=== PATIENT | female | born 1930 | race Caucasian/White ===

== ENCOUNTER 2018-01-09 18:26 | Inpatient (IN) | payer MEDICARE, OTHER ==
--- NOTE | 2018-01-09 19:16 | ER Document Report ---
ED General - General Mode of Arrival: Medic Information source: Patient, Relative TRAVEL OUTSIDE OF THE [place] IN LAST 30 DAYS: No <CHERELLE ALEGRE - Last Filed: 01/09/18 23:34> <ALEKS WARNER - Last Filed: 01/10/18 02:25> - General Chief Complaint: General Weakness Stated Complaint: GENERAL WEAKNESS Time Seen by Provider: 01/09/18 18:31 Notes: Patient is an 87-year-old female with dementia, hypertension, high cholesterol presents to the emergency department with relatives after being found on the floor at home. Daughter states that she normally visits the patient around 1630 everyday. Today granddaughter states she found the patient laying on the floor further stating she believes she could have possibly hit her head on the floor or a cat dish. Granddaughter states the last known well of the patient was yesterday around 1600. She further states the patient appears to behaving at baseline although for the last 2 weeks she has been unwilling to get out of bed and has been defecating herself. She states the patient normally lives alone and is very independent, although they think she needs to be placed in assisted living now. Family states she has been complaining to them of nausea, body aches and the inability to move. Family also complains of diarrhea although they initially thought it was due to a recent start of medications. Family states the patient just started taking medications 1 week ago. (CHERELLE ALEGRE) - Related Data Allergies/Adverse Reactions: No Known Allergies Allergy (Unverified 10/26/11 12:48) Past Medical History - General Information source: Patient - Social History Smoking Status: Former Smoker Chew tobacco use (# tins/day): No Frequency of alcohol use: None Drug Abuse: None Family History: Reviewed & Not Pertinent Patient has suicidal ideation: No Patient has homicidal ideation: No - Past Medical History Cardiac Medical History: Reports: Hx Hypertension Endocrine Medical History: Reports: Hx Hypothyroidism GI Medical History: Reports: Hx Gastroesophageal Reflux Disease Musculoskeletal Medical History: Reports Hx Arthritis Past Surgical History: Reports: Hx Breast Surgery - Breast implants, Hx Cholecystectomy, Hx Hysterectomy - Immunizations Hx Diphtheria, Pertussis, Tetanus Vaccination: No <CHERELLE ALEGRE - Last Filed: 01/09/18 23:34> Review of Systems - Review of Systems Constitutional: See HPI EENT: No symptoms reported Cardiovascular: No symptoms reported Respiratory: No symptoms reported Gastrointestinal: No symptoms reported Genitourinary: No symptoms reported Female Genitourinary: No symptoms reported Musculoskeletal: No symptoms reported Skin: No symptoms reported Hematologic/Lymphatic: No symptoms reported Neurological/Psychological: See HPI -: Yes All other systems reviewed and negative <CODEYBAYRONGAY - Last Filed: 01/09/18 23:34> Physical Exam <CHERELLE ALEGRE - Last Filed: 01/09/18 23:34> <ALEKS WARNER - Last Filed: 01/10/18 02:25> - Vital signs Vitals: Resp 25 H 01/09/18 18:47 - Notes Notes: GENERAL: Alert, Disheveled, cachectic. No acute distress. HEAD: Normocephalic, atraumatic. EYES: Pupils equal, round, and reactive to light. Extraocular movements intact. Ecchymosis the right eyebrow. ENT: Oral mucosa moist, tongue midline. NECK: Full range of motion. Supple. Trachea midline. LUNGS: Clear to auscultation bilaterally, no wheezes, rales, or rhonchi. No respiratory distress. HEART: Regular rate and rhythm. No murmurs, gallops, or rubs. ABDOMEN: Soft, non-tender. Non-distended. Bowel sounds present in all 4 quadrants. EXTREMITIES: Moves all 4 extremities spontaneously. NEUROLOGICAL: Demented at baseline. Normal speech. PSYCH: Normal affect, normal mood. SKIN: Warm, dry, normal turgor. No rashes or lesions noted. (CHERELLE ALEGRE) Course - Laboratory Result Diagrams: 01/09/18 19:18 01/09/18 19:18 <CODEYCHERELLE GAINES - Last Filed: 01/09/18 23:34> - Laboratory Result Diagrams: 01/09/18 19:18 01/09/18 19:18 - Diagnostic Test Radiology reviewed: Reports reviewed <ALEKS WARNER - Last Filed: 01/10/18 02:25> - Re-evaluation Re-evalutation: 01/09 Patient is 87-year-old female who is brought in by her family. She is found on the ground for an unknown period of time. Patient has dementia. Patient had her head but does not remember doing so. No acute findings on CT head or chest x-ray. Patient does have some acute renal insufficiency likely due to dehydration. She is hypokalemic and has an elevated lactate. Urine with no evidence for infection. Given patient's blood work and inability to walk with some acute on chronic confusion, she will be kept for admission and gentle hydration. Family is agreeable to this plan. Discussed with the hospitalist service. Stable at the time of admission. (ALEKS WARNER) - Vital Signs Vital signs: Temp Pulse Resp BP Pulse Ox 18 117/74 97 01/10/18 01:01 01/10/18 01:01 01/10/18 01:01 - Laboratory Laboratory results interpreted by ca: 01/09/18 01/09/18 01/09/18 19:18 19:18 19:18 WBC 13.8 H RDW 14.5 H Seg Neutrophils % 84.3 H Lymphocytes % 9.3 L Absolute Neutrophils 11.6 H VBG pH VBG HCO3 Potassium 3.1 L Chloride 93 L Anion Gap 23 H BUN 49 H Creatinine 1.38 H Est GFR ( Amer) 44 L Est GFR (Non-Af Amer) 36 L Glucose 122 H Lactic Acid 3.1 H Phosphorus Total Bilirubin 2.0 H Direct Bilirubin 0.9 H AST 141 H ALT 85 H Total Protein 8.4 H TSH Urine Protein Urine Glucose (UA) Urine Ketones Urine Bilirubin Urine Urobilinogen 01/09/18 01/09/18 01/09/18 19:18 19:18 19:18 WBC RDW Seg Neutrophils % Lymphocytes % Absolute Neutrophils VBG pH VBG HCO3 Potassium Chloride Anion Gap BUN Creatinine Est GFR ( Amer) Est GFR (Non-Af Amer) Glucose Lactic Acid Phosphorus 4.7 H Total Bilirubin Direct Bilirubin AST ALT Total Protein TSH 4.96 H 4.87 H Urine Protein Urine Glucose (UA) Urine Ketones Urine Bilirubin Urine Urobilinogen 01/09/18 01/09/18 20:55 20:55 WBC RDW Seg Neutrophils % Lymphocytes % Absolute Neutrophils VBG pH 7.44 H VBG HCO3 32.3 H Potassium Chloride Anion Gap BUN Creatinine Est GFR ( Amer) Est GFR (Non-Af Amer) Glucose Lactic Acid Phosphorus Total Bilirubin Direct Bilirubin AST ALT Total Protein TSH Urine Protein 100 H Urine Glucose (UA) 50 H Urine Ketones 20 H Urine Bilirubin SMALL H Urine Urobilinogen 4.0 H Discharge <CHERELLE ALEGRE - Last Filed: 01/09/18 23:34> - Discharge Admitting Provider: [facility] Admitted: Telemetry <ALEKS WARNER - Last Filed: 01/10/18 02:25> - Discharge Clinical Impression: Hypokalemia, Encephalopathy, Dehydration Closed head injury Qualifiers: Encounter type: initial encounter Qualified Code(s): S09.90XA - Unspecified injury of head, initial encounter Acute renal failure Qualifiers: Acute renal failure type: unspecified Qualified Code(s): N17.9 - Acute kidney failure, unspecified Condition: Stable Disposition: ADMITTED INPATIENT Scribe Attestation: 01/10/18 02:25 I personally performed the services described in the documentation, reviewed and edited the documentation which was dictated to the scribe in my presence, and it accurately records my words and actions. (ALEKS WARNER) Scribe Documentation - Scribe Written by Liamibe:: Laurence Grier, 01/09/2018 23:36 acting as scribe for :: Janet <CHERELLE ALEGRE - Last Filed: 01/09/18 23:34>
[2018-01-09] MEDS ORDERED: ONDANSETRON HCL INJ/PF 4 MG/2 ML SDV IV ONE (19:17)
--- NOTE | 2018-01-09 19:25 | RADIOLOGY REPORT (SQ) ---
EXAM DESCRIPTION: CHEST SINGLE VIEW COMPLETED DATE/TIME: 01/09/2018 7:15 pm REASON FOR STUDY: weakness COMPARISON: 08/22/2014 EXAM PARAMETERS: NUMBER OF VIEWS: One view. TECHNIQUE: Single frontal radiographic view of the chest acquired. RADIATION DOSE: NA LIMITATIONS: None. FINDINGS: LUNGS AND PLEURA: No opacities, masses or pneumothorax. No pleural effusion. MEDIASTINUM AND HILAR STRUCTURES: No masses. Contour normal. HEART AND VASCULAR STRUCTURES: Heart normal in size. Normal vasculature. BONES: No acute findings. HARDWARE: None in the chest. OTHER: Breast prostheses. IMPRESSION: NO ACUTE RADIOGRAPHIC FINDING IN THE CHEST. TECHNICAL DOCUMENTATION: JOB ID: [id number] [employer]- All Rights Reserved Reading location - IP/workstation name: [email or web address]
[2018-01-09 19:32] LABS: ABSOLUTE LYMPHOCYTES (AUTO) 1.3 10^3/uL (0.5-4.7); ABSOLUTE MONOCYTES (AUTO) 0.9 10^3/uL (0.1-1.4); ABSOLUTE NEUT (AUTO) 11.6 10^3/uL (1.7-8.2); BASOPHILS % (AUTO) 0.1 % (0-2); HEMATOCRIT 45.2 % (36.0-47.0); HEMOGLOBIN 15.1 g/dL (12.0-15.5); LYMPHOCYTES % (AUTO) 9.3 % (13-45); MEAN CORPUSCULAR HEMOGLOBIN 29.5 pg (27.0-33.4); MEAN CORPUSCULAR HGB CONC 33.4 g/dL (32.0-36.0); MEAN CORPUSCULAR VOLUME 88 fl (80-97); MONOCYTES % (AUTO) 6.3 % (3-13); PLATELET COUNT 255 10^3/uL (150-450); RED BLOOD COUNT 5.11 10^6/uL (3.72-5.28); RED CELL DISTRIBUTION WIDTH 14.5 % (11.5-14.0); SEGMENTED NEUTROPHILS % (AUTO) 84.3 % (42-78); TOTAL CELLS COUNTED % (AUTO) 100 %; WHITE BLOOD COUNT 13.8 10^3/uL (4.0-10.5)
[2018-01-09 19:38] LABS: INTERNATIONAL RATION (INR) 1.14; PROTHROMBIN TIME 15.1 SEC (11.4-15.4)
[2018-01-09 19:53] LABS: ALANINE AMINOTRANSFERASE 85 U/L (9-52); ALKALINE PHOSPHATASE 101 U/L (38-126); ASPARTATE AMINO TRANSFERASE 141 U/L (14-36); BILIRUBIN,DIRECT 0.9 mg/dL (0.0-0.4); BLOOD UREA NITROGEN 49 mg/dL (7-20); CALCIUM 9.1 mg/dL (8.4-10.2); CREATINE KINASE 97 U/L (30-135); GLUCOSE 122 mg/dL (75-110); POTASSIUM 3.1 mmol/L (3.6-5.0); TOTAL PROTEIN 8.4 g/dL (6.3-8.2)
[2018-01-09 19:58] LABS: ANION GAP 23 (5-19); CARBON DIOXIDE 28 mmol/L (22-30); CHLORIDE 93 mmol/L (98-107); SODIUM 143.8 mmol/L (137-145)
--- NOTE | 2018-01-09 20:41 | RADIOLOGY REPORT (SQ) ---
EXAM DESCRIPTION: CT HEAD WITHOUT COMPLETED DATE/TIME: 01/09/2018 8:29 pm REASON FOR STUDY: fall, head injury COMPARISON: None. TECHNIQUE: Axial images acquired through the brain without intravenous contrast. Images reviewed wi th bone, brain and subdural windows. Images stored on PACS. All CT scanners at this facility use dose modulation, iterative reconstruction, and/or weight based d osing when appropriate to reduce radiation dose to as low as reasonably achievable (ALARA). [facility]: Dose Right [facility]: CareDose [facility]: Dose Right [facility]: Teradose 4D [facility]: Smart [employer] RADIATION DOSE: CT Rad equipment meets quality standard of care and radiation dose reduction techniq ues were employed. CTDIvol: 53.2 mGy. DLP: 937 mGy-cm. mGy. LIMITATIONS: None. FINDINGS: VENTRICLES: Normal size and contour. CEREBRUM: No masses. No hemorrhage. No midline shift. No evidence for acute infarction. Normal gra y/white matter differentiation. No areas of low density in the white matter. CEREBELLUM: No masses. No hemorrhage. No alteration of density. No evidence for acute infarction. EXTRAAXIAL SPACES: No fluid collections. No masses. ORBITS AND GLOBE: No intra- or extraconal masses. Normal contour of globe without masses. CALVARIUM: No fracture. PARANASAL SINUSES: No fluid or mucosal thickening. SOFT TISSUES: No mass or hematoma. OTHER: No other significant finding. IMPRESSION: NORMAL BRAIN CT WITHOUT CONTRAST. EVIDENCE OF ACUTE STROKE: NO. COMMENT: Quality ID # [id number]: Final reports with documentation of one or more dose reduction techniques (e.g., Automated exposure control, adjustment of the mA and/or kV according to patient size, use of iterative reconstruction technique) TECHNICAL DOCUMENTATION: JOB ID: [id number] [employer]- All Rights Reserved Reading location - IP/workstation name: [email or web address]
[2018-01-09] MEDS ORDERED: NORMAL SALINE 1000 ML 1,000 ML IV ONE (20:59)
[2018-01-09 21:01] LABS: PHOSPHORUS 4.7 mg/dL (2.5-4.5)
[2018-01-09 21:18] LABS: VENOUS BLOOD BASE EXCESS 6.7 mmol/L; VENOUS BLOOD HCO3 32.3 mmol/L (20-32); VENOUS BLOOD PH 7.44 (7.30-7.42)
[2018-01-09] MEDS: POTASSI CL 20 MEQ/50 ML RIDER 20 MEQ/50 ML RTUPB IV SCH ×2 (21:18→23:52)
[2018-01-09 21:39] LABS: APPEARANCE,URINE CLOUDY; BILIRUBIN,URINE SMALL (NEGATIVE); GLUCOSE, URINE 50 mg/dL (NEGATIVE); KETONES,URINE 20 mg/dL (NEGATIVE); LEUKOCYTE ESTERASE,URINE NEGATIVE (NEGATIVE); NITRITE,URINE NEGATIVE (NEGATIVE); PROTEIN,URINE 100 mg/dL (NEGATIVE); URINE SPECIFIC GRAVITY 1.024
[2018-01-09 21:41] LABS: COLOR,URINE YELLOW
[2018-01-09] MEDS ORDERED: ACETAMINOPHEN 325 MG TABLET PO PRN (22:16)
[2018-01-09] MEDS ORDERED: IPRATROPIUM/ALBUTEROL 0.5-2.5 MG/3 ML AMPUL NEB PRN (22:16)
[2018-01-09] MEDS ORDERED: NORMAL SALINE 1000 ML 1,000 ML IV SCH (22:30)
[2018-01-10 01:46] LABS: CREATINE KINASE MB 1.5 ng/mL (<4.55); TROPONIN I 0.069 ng/mL
[2018-01-10] MEDS: NORMAL SALINE 1000 ML 1,000 ML IV PRN ×3 (03:12→11:50)
--- NOTE | 2018-01-10 05:57 | PDOC H&P ---
History of Present Illness Admission Date/PCP: 01/09/18 21:48 ANNE-MARIE FERRER MD Patient complains of: Generalized weakness and fall History of Present Illness: DUY PLATT is a 87 year old female who lives alone with a history of advanced vascular dementia, hypertension and anorexia who was found by family members disheveled on the floor with confusion. Patient is unable to recall the events, there is evidence fecal, urinary incontinence and scalp contusion without laceration. Patient currently awake and alert oriented 1 denying pain. Family members at bedside admit this is her baseline, she remains independent with the assistance of family members 3 times a day to assist with hygiene, feeding, medications and ADLs. In the emergency room she is found unable to walk, unremarkable imaging, with hypokalemia, leukocytosis and dehydration. She was recently started on unknown appetite stimulant. She receives IV fluids , potassium and referred to the hospitalist for admission. Past Medical History Cardiac Medical History: Reports: Hyperlipidema, Hypertension Denies: Myocardial Infarction Pulmonary Medical History: Denies: Asthma Neurological Medical History: Denies: Seizures Endocrine Medical History: Reports: Hypothyroidism GI Medical History: Reports: Gastroesophageal Reflux Disease Denies: Hepatitis, Hiatal Hernia Musculoskeltal Medical History: Reports: Arthritis Psychiatric Medical History: Reports: Dementia Denies: Depression Hematology: Denies: Anemia, Sickle Cell Disease Past Surgical History Past Surgical History: Reports: Cholecystectomy, Hysterectomy Denies: Amputation, Mastectomy, Pacemaker Social History Information Source: Relative, [facility] Records Lives with: Alone Smoking Status: Former Smoker Frequency of Alcohol Use: None Hx Recreational Drug Use: No Drugs: None Hx Prescription Drug Abuse: No - Advance Directive Resuscitation Status: Full Code Family History Family History: Hypertension. denies: DM Parental Family History Reviewed: Yes Children Family History Reviewed: Yes Sibling(s) Family History Reviewed.: Yes Medication/Allergy Home Medications: Amlodipine Besylate [Norvasc 10 mg Tablet] 10 mg PO DAILY 10/26/11 Celecoxib [Celebrex 200 mg Capsule] 200 mg PO BID 10/26/11 Estrogens,Conjugated [Premarin 0.625 mg Tablet] 0.625 mg PO DAILY 10/26/11 Furosemide [Lasix 40 mg Tablet] 40 mg PO QAM 10/26/11 Levothyroxine Sodium [Tirosint] 88 mcg PO DAILY 10/26/11 Potassium Chloride [Klor-Con 10 Meq Capsule ER] 20 meq PO DAILY 10/26/11 Rabeprazole Sodium [Aciphex] 20 mg PO DAILY 10/26/11 Ciprofloxacin HCl [Cipro 500 mg Tablet] 500 mg PO BID #10 tablet 08/23/14 Furosemide [Lasix 20 mg Tablet] 20 mg PO QAM #30 tablet 08/23/14 Allergies/Adverse Reactions: No Known Allergies Allergy (Unverified 10/26/11 12:48) Review of Systems ROS unobtainable: Due to mental status Physical Exam Vital Signs: Temp Pulse Resp BP Pulse Ox 97.6 F 70 16 130/61 H 96 01/10/18 03:33 01/10/18 03:33 01/10/18 03:33 01/10/18 03:33 01/10/18 03:33 Intake & Output 01/08/18 01/09/18 01/10/18 11:59 11:59 11:59 Intake Total 1100 Balance 1100 Weight 94 kg General appearance: PRESENT: no acute distress, cooperative, disheveled, thin, other - Chronically ill appearing with cachexia and temporal wasting Head exam: PRESENT: normocephalic, other - Contusion with ecchymosis of the right forehead. ABSENT: atraumatic Eye exam: PRESENT: conjunctiva pink, EOMI, PERRLA. ABSENT: scleral icterus Ear exam: PRESENT: normal external ear exam Mouth exam: PRESENT: moist, tongue midline Neck exam: ABSENT: carotid bruit, JVD, lymphadenopathy, thyromegaly Respiratory exam: PRESENT: clear to auscultation fredo. ABSENT: rales, rhonchi, wheezes Cardiovascular exam: PRESENT: RRR. ABSENT: diastolic murmur, rubs, systolic murmur Pulses: PRESENT: normal dorsalis pedis pul Vascular exam: PRESENT: normal capillary refill GI/Abdominal exam: PRESENT: normal bowel sounds, soft. ABSENT: distended, guarding, mass, organolmegaly, rebound, tenderness Rectal exam: PRESENT: deferred Extremities exam: PRESENT: full ROM. ABSENT: calf tenderness, clubbing, pedal edema Neurological exam: PRESENT: alert, awake, oriented to person, CN II-XII grossly intact. ABSENT: motor sensory deficit Psychiatric exam: PRESENT: appropriate affect, normal mood. ABSENT: homicidal ideation, suicidal ideation Skin exam: PRESENT: dry, intact, warm. ABSENT: cyanosis, rash Results Laboratory Results: 01/09/18 23:35 Lactic Acid 1.8 01/10/18 01/10/18 01:10 01:10 Creatine Kinase 86 CK-MB (CK-2) 1.50 Troponin I 0.069 Impressions: Chest X-Ray 01/09/18 18:40 IMPRESSION: NO ACUTE RADIOGRAPHIC FINDING IN THE CHEST. Head CT 01/09/18 19:15 IMPRESSION: NORMAL BRAIN CT WITHOUT CONTRAST. EVIDENCE OF ACUTE STROKE: NO. Assessment & Plan - Diagnosis (1) Acute renal failure Qualifiers: Acute renal failure type: unspecified Qualified Code(s): N17.9 - Acute kidney failure, unspecified Is this a current diagnosis for this admission?: Yes Plan: Likely secondary to dehydration, IV fluid challenge, reevaluate chemistry (2) Closed head injury Qualifiers: Encounter type: initial encounter Qualified Code(s): S09.90XA - Unspecified injury of head, initial encounter Is this a current diagnosis for this admission?: Yes Plan: Unwitnessed fall, no evidence for seizure, monitor neuro status. (3) Dehydration Is this a current diagnosis for this admission?: Yes Plan: Secondary to anorexia and poor p.o. intake. IV fluid challenge (4) Encephalopathy Is this a current diagnosis for this admission?: Yes Plan: Likely at baseline of vascular dementia. (5) Hypokalemia Is this a current diagnosis for this admission?: Yes Plan: Replace potassium, add on magnesium level, reevaluate chemistry - Time Time Spent: 50 to 70 Minutes
[2018-01-10] MEDS: HEPARIN SOD (PORCINE) 5,000 UNIT/ML 1 ML SYRINGE SUBCUT SCH ×3 (06:51→21:01)
--- NOTE | 2018-01-10 07:34 | EKG REPORT ---
SEVERITY:- ABNORMAL ECG - ATRIAL FIBRILLATION VENTRICULAR PREMATURE COMPLEX ABNORMAL T, CONSIDER ISCHEMIA, DIFFUSE LEADS : Confirmed by: Pramod Altamirano MD 10-Jan-2018 07:33:15
[2018-01-10 08:42] LABS: ABSOLUTE LYMPHOCYTES (AUTO) 1.5 10^3/uL (0.5-4.7); ABSOLUTE MONOCYTES (AUTO) 0.7 10^3/uL (0.1-1.4); ABSOLUTE NEUT (AUTO) 8.4 10^3/uL (1.7-8.2); BASOPHILS % (AUTO) 0.1 % (0-2); EOSINOPHILS % (AUTO) 0.3 % (0-6); HEMATOCRIT 35.6 % (36.0-47.0); LYMPHOCYTES % (AUTO) 13.9 % (13-45); MEAN CORPUSCULAR HEMOGLOBIN 29.8 pg (27.0-33.4); MEAN CORPUSCULAR VOLUME 88 fl (80-97); MONOCYTES % (AUTO) 6.6 % (3-13); PLATELET COUNT 158 10^3/uL (150-450); RED BLOOD COUNT 4.06 10^6/uL (3.72-5.28); RED CELL DISTRIBUTION WIDTH 14.6 % (11.5-14.0); SEGMENTED NEUTROPHILS % (AUTO) 79.1 % (42-78); TOTAL CELLS COUNTED % (AUTO) 100 %; WHITE BLOOD COUNT 10.6 10^3/uL (4.0-10.5)
[2018-01-10 08:55] LABS: HEMOGLOBIN 12.1 g/dL (12.0-15.5)
[2018-01-10 09:00] LABS: ANION GAP 13 (5-19); BLOOD UREA NITROGEN 35 mg/dL (7-20); CALCIUM 7.5 mg/dL (8.4-10.2); CARBON DIOXIDE 23 mmol/L (22-30); CHLORIDE 102 mmol/L (98-107); CREATINE KINASE 118 U/L (30-135); GLUCOSE 86 mg/dL (75-110); SODIUM 138.4 mmol/L (137-145)
[2018-01-10 09:10] LABS: CREATINE KINASE MB 1.79 ng/mL (<4.55); POTASSIUM 2.8 mmol/L (3.6-5.0); TROPONIN I 0.07 ng/mL
[2018-01-10] MEDS: DOCUSATE SODIUM 100 MG CAPSULE PO SCH ×2 (09:58→17:20)
[2018-01-10] MEDS: AMLODIPINE BESYLATE 10 MG TABLET PO SCH (09:59)
[2018-01-10] MEDS: POTASSIUM CHLORIDE 20 MEQ/50 ML RTU IV SCH ×4 (10:00→18:32)
[2018-01-10 14:39] LABS: CREATINE KINASE MB 2.06 ng/mL (<4.55); TROPONIN I 0.068 ng/mL
--- NOTE | 2018-01-10 15:00 | PDOC PROGRESS REPORT ---
Subjective Progress Note for:: 01/10/18 Subjective:: This is 87 years old female patient with past medical history of advanced vascular dementia, hypertension, hyperlipidemia, hypothyroidism and gastroesophageal reflux disease brought by family members with chief complaint of altered mental status. At her baseline patient is very independent to her activities of daily living but the last 2 weeks patient refused to get out of bed and doing her other her daily routines. On arrival to the ER patient was disheveled and incoherent. Her blood work shows hypokalemia and acute kidney injury. Her daughter states that there are no more able to take care of her and they want her to be placed in assisted living. Reason For Visit: ENCEPHALOPATHY, FALL, MALNUTRITION Physical Exam Vital Signs: Temp Pulse Resp BP Pulse Ox 97.5 F 77 16 114/61 94 01/10/18 08:13 01/10/18 09:20 01/10/18 09:20 01/10/18 08:13 01/10/18 08:13 Intake & Output 01/09/18 01/10/18 01/11/18 06:59 06:59 06:59 Intake Total 1100 2043 Balance 1100 2043 Weight 94 kg General appearance: PRESENT: no acute distress Eye exam: PRESENT: conjunctiva pink Mouth exam: PRESENT: moist Neck exam: ABSENT: carotid bruit, JVD, lymphadenopathy, thyromegaly Respiratory exam: PRESENT: clear to auscultation fredo. ABSENT: rales, rhonchi, wheezes Cardiovascular exam: PRESENT: RRR. ABSENT: diastolic murmur, rubs, systolic murmur GI/Abdominal exam: PRESENT: normal bowel sounds, soft. ABSENT: distended, guarding, mass, organolmegaly, rebound, tenderness Extremities exam: PRESENT: full ROM. ABSENT: calf tenderness, clubbing, pedal edema Neurological exam: PRESENT: alert, altered, awake Results Laboratory Results: 01/10/18 07:46 01/10/18 07:46 01/09/18 01/10/18 01/10/18 23:35 07:46 07:46 WBC 10.6 H RBC 4.06 Hgb 12.1 D Hct 35.6 L MCV 88 MCH 29.8 MCHC 34.0 RDW 14.6 H Plt Count 158 Seg Neutrophils % 79.1 H Lymphocytes % 13.9 Monocytes % 6.6 Eosinophils % 0.3 Basophils % 0.1 Absolute Neutrophils 8.4 H Absolute Lymphocytes 1.5 Absolute Monocytes 0.7 Absolute Eosinophils 0.0 Absolute Basophils 0.0 Sodium 138.4 Potassium 2.8 L* Chloride 102 Carbon Dioxide 23 Anion Gap 13 BUN 35 H Creatinine 0.79 Est GFR ( Amer) > 60 Est GFR (Non-Af Amer) > 60 Glucose 86 Lactic Acid 1.8 Calcium 7.5 L 01/10/18 01/10/18 01/10/18 01:10 01:10 07:46 Creatine Kinase 86 118 CK-MB (CK-2) 1.50 Troponin I 0.069 01/10/18 01/10/18 07:46 13:38 Creatine Kinase 134 CK-MB (CK-2) 1.79 Troponin I 0.070 Impressions: Chest X-Ray 01/09/18 18:40 IMPRESSION: NO ACUTE RADIOGRAPHIC FINDING IN THE CHEST. Head CT 01/09/18 19:15 IMPRESSION: NORMAL BRAIN CT WITHOUT CONTRAST. EVIDENCE OF ACUTE STROKE: NO. Assessment & Plan - Diagnosis (1) AMS, due to metabolic encephalopathy Is this a current diagnosis for this admission?: Yes Plan: We will correct her hypokalemia and kidney injury (2) Hypokalemia Is this a current diagnosis for this admission?: Yes Plan: Being repleted (3) Acute kidney injury Is this a current diagnosis for this admission?: Yes Plan: Most probably due to dehydration. Gentle hydration (4) Advanced vascular dementia Is this a current diagnosis for this admission?: Yes Plan: Continue her home medication and monitor (5) Hypertension Qualifiers: Hypertension type: essential hypertension Qualified Code(s): I10 - Essential (primary) hypertension Is this a current diagnosis for this admission?: Yes Plan: Continue her home medication (6) Hyperlipidemia Qualifiers: Hyperlipidemia type: unspecified Qualified Code(s): E78.5 - Hyperlipidemia , unspecified Is this a current diagnosis for this admission?: Yes Plan: Continue her home medication (7) GERD (gastroesophageal reflux disease) Qualifiers: Esophagitis presence: without esophagitis Qualified Code(s): K21.9 - Gastro -esophageal reflux disease without esophagitis Is this a current diagnosis for this admission?: Yes Plan: Continue PPI
[2018-01-11] MEDS: HEPARIN SOD (PORCINE) 5,000 UNIT/ML 1 ML SYRINGE SUBCUT SCH ×3 (05:09→21:15)
[2018-01-11 05:32] LABS: ABSOLUTE EOSINOPHILS # (AUTO) 0.1 10^3/uL (0.0-0.6); ABSOLUTE LYMPHOCYTES (AUTO) 1.6 10^3/uL (0.5-4.7); ABSOLUTE MONOCYTES (AUTO) 0.7 10^3/uL (0.1-1.4); ABSOLUTE NEUT (AUTO) 5.4 10^3/uL (1.7-8.2); BASOPHILS % (AUTO) 0.2 % (0-2); EOSINOPHILS % (AUTO) 1.2 % (0-6); HEMATOCRIT 36.6 % (36.0-47.0); HEMOGLOBIN 12.4 g/dL (12.0-15.5); LYMPHOCYTES % (AUTO) 20.2 % (13-45); MEAN CORPUSCULAR HEMOGLOBIN 29.7 pg (27.0-33.4); MEAN CORPUSCULAR HGB CONC 33.9 g/dL (32.0-36.0); MEAN CORPUSCULAR VOLUME 88 fl (80-97); MONOCYTES % (AUTO) 8.6 % (3-13); PLATELET COUNT 130 10^3/uL (150-450); RED BLOOD COUNT 4.18 10^6/uL (3.72-5.28); RED CELL DISTRIBUTION WIDTH 14.6 % (11.5-14.0); SEGMENTED NEUTROPHILS % (AUTO) 69.8 % (42-78); TOTAL CELLS COUNTED % (AUTO) 100 %; WHITE BLOOD COUNT 7.7 10^3/uL (4.0-10.5)
[2018-01-11 05:42] LABS: ANION GAP 11 (5-19); BLOOD UREA NITROGEN 18 mg/dL (7-20); CARBON DIOXIDE 28 mmol/L (22-30); CHLORIDE 98 mmol/L (98-107); GLUCOSE 75 mg/dL (75-110); SODIUM 137.2 mmol/L (137-145)
[2018-01-11 05:48] LABS: POTASSIUM 2.9 mmol/L (3.6-5.0)
[2018-01-11] MEDS: AMLODIPINE BESYLATE 10 MG TABLET PO SCH (10:54)
[2018-01-11] MEDS: DOCUSATE SODIUM 100 MG CAPSULE PO SCH ×2 (10:54→17:31)
[2018-01-11] MEDS: POTASSIUM CHLORIDE 20 MEQ/50 ML RTU IV SCH ×3 (10:56→21:33)
--- NOTE | 2018-01-11 12:16 | PDOC PROGRESS REPORT ---
Subjective Progress Note for:: 01/11/18 Subjective:: Patient is resting in bed comfortably. No fever, chills, nausea, vomiting or diarrhea. She is able to eat and tolerates. Her potassium still low yesterday it was 2.8 and after 4K riders her potassium today is 2.9. Reason For Visit: ENCEPHALOPATHY, FALL, MALNUTRITION Physical Exam Vital Signs: Temp Pulse Resp BP Pulse Ox 98.0 F 77 16 139/67 H 98 01/11/18 07:58 01/11/18 09:00 01/11/18 09:00 01/11/18 07:58 01/11/18 07:58 Intake & Output 01/10/18 01/11/18 01/12/18 06:59 06:59 06:59 Intake Total 1100 3443 Output Total 200 Balance 1100 3243 Weight 94 kg 46.8 kg Results Laboratory Results: 01/11/18 05:03 01/11/18 05:03 01/11/18 01/11/18 05:03 05:03 WBC 7.7 RBC 4.18 Hgb 12.4 Hct 36.6 MCV 88 MCH 29.7 MCHC 33.9 RDW 14.6 H Plt Count 130 L Seg Neutrophils % 69.8 Lymphocytes % 20.2 Monocytes % 8.6 Eosinophils % 1.2 Basophils % 0.2 Absolute Neutrophils 5.4 Absolute Lymphocytes 1.6 Absolute Monocytes 0.7 Absolute Eosinophils 0.1 Absolute Basophils 0.0 Sodium 137.2 Potassium 2.9 L* Chloride 98 Carbon Dioxide 28 Anion Gap 11 BUN 18 Creatinine 0.64 Est GFR ( Amer) > 60 Est GFR (Non-Af Amer) > 60 Glucose 75 Calcium 8.0 L 01/10/18 01/10/18 01/10/18 01:10 01:10 07:46 Creatine Kinase 86 118 CK-MB (CK-2) 1.50 Troponin I 0.069 01/10/18 01/10/18 01/10/18 07:46 13:38 13:38 Creatine Kinase 134 CK-MB (CK-2) 1.79 2.06 Troponin I 0.070 0.068 Impressions: Chest X-Ray 01/09/18 18:40 IMPRESSION: NO ACUTE RADIOGRAPHIC FINDING IN THE CHEST. Head CT 01/09/18 19:15 IMPRESSION: NORMAL BRAIN CT WITHOUT CONTRAST. EVIDENCE OF ACUTE STROKE: NO. Assessment & Plan - Diagnosis (1) AMS, due to metabolic encephalopathy Is this a current diagnosis for this admission?: Yes Plan: Stable (2) Hypokalemia Is this a current diagnosis for this admission?: Yes Plan: Potassium is still low. Continue replacement (3) Acute kidney injury Is this a current diagnosis for this admission?: Yes Plan: Resolved (4) Advanced vascular dementia Is this a current diagnosis for this admission?: Yes Plan: Continue her home medication and monitor (5) Hypertension Qualifiers: Hypertension type: essential hypertension Qualified Code(s): I10 - Essential (primary) hypertension Is this a current diagnosis for this admission?: Yes Plan: Continue her home medication (6) Hyperlipidemia Qualifiers: Hyperlipidemia type: unspecified Qualified Code(s): E78.5 - Hyperlipidemia , unspecified Is this a current diagnosis for this admission?: Yes Plan: Continue her home medication (7) GERD (gastroesophageal reflux disease) Qualifiers: Esophagitis presence: without esophagitis Qualified Code(s): K21.9 - Gastro -esophageal reflux disease without esophagitis Is this a current diagnosis for this admission?: Yes Plan: Continue PPI
[2018-01-11] MEDS ORDERED: POTASSIUM CHLORIDE 20 MEQ/50 ML RTU IV ONE (21:00)
[2018-01-12] MEDS: HEPARIN SOD (PORCINE) 5,000 UNIT/ML 1 ML SYRINGE SUBCUT SCH ×3 (05:23→22:45)
[2018-01-12 06:32] LABS: ANION GAP 11 (5-19); BLOOD UREA NITROGEN 10 mg/dL (7-20); CALCIUM 7.8 mg/dL (8.4-10.2); CARBON DIOXIDE 27 mmol/L (22-30); CHLORIDE 99 mmol/L (98-107); GLUCOSE 86 mg/dL (75-110); POTASSIUM 3.6 mmol/L (3.6-5.0)
[2018-01-12] MEDS: AMLODIPINE BESYLATE 10 MG TABLET PO SCH (10:34)
[2018-01-12] MEDS: DOCUSATE SODIUM 100 MG CAPSULE PO SCH ×2 (10:35→17:05)
--- NOTE | 2018-01-12 15:20 | PDOC PROGRESS REPORT ---
Subjective Progress Note for:: 01/12/18 Subjective:: Patient is resting in bed comfortably. Currently she is at her baseline. Her hypokalemia is corrected and her potassium yesterday 3.6. Reason For Visit: ENCEPHALOPATHY, FALL, MALNUTRITION Physical Exam Vital Signs: Temp Pulse Resp BP Pulse Ox 98.2 F 73 18 103/57 L 96 01/12/18 11:35 01/12/18 14:00 01/12/18 11:35 01/12/18 11:35 01/12/18 11:35 Intake & Output 01/11/18 01/12/18 01/13/18 06:59 06:59 06:59 Intake Total 3443 390 320 Output Total 200 1050 350 Balance 3243 -660 -30 Weight 46.8 kg 45.1 kg 47.2 kg Results Laboratory Results: 01/11/18 05:03 01/12/18 05:24 01/12/18 05:24 Sodium 137.0 Potassium 3.6 Chloride 99 Carbon Dioxide 27 Anion Gap 11 BUN 10 Creatinine 0.56 Est GFR ( Amer) > 60 Est GFR (Non-Af Amer) > 60 Glucose 86 Calcium 7.8 L 01/10/18 01/10/18 01/10/18 01:10 01:10 07:46 Creatine Kinase 86 118 CK-MB (CK-2) 1.50 Troponin I 0.069 01/10/18 01/10/18 01/10/18 07:46 13:38 13:38 Creatine Kinase 134 CK-MB (CK-2) 1.79 2.06 Troponin I 0.070 0.068 Impressions: Chest X-Ray 01/09/18 18:40 IMPRESSION: NO ACUTE RADIOGRAPHIC FINDING IN THE CHEST. Head CT 01/09/18 19:15 IMPRESSION: NORMAL BRAIN CT WITHOUT CONTRAST. EVIDENCE OF ACUTE STROKE: NO. Assessment & Plan - Diagnosis (1) AMS, due to metabolic encephalopathy Is this a current diagnosis for this admission?: Yes Plan: Improving (2) Hypokalemia Is this a current diagnosis for this admission?: Yes Plan: Resolved (3) Acute kidney injury Is this a current diagnosis for this admission?: Yes Plan: Resolved (4) Advanced vascular dementia Is this a current diagnosis for this admission?: Yes Plan: Continue her home medication and monitor (5) Hypertension Qualifiers: Hypertension type: essential hypertension Qualified Code(s): I10 - Essential (primary) hypertension Is this a current diagnosis for this admission?: Yes Plan: Continue her home medication (6) Hyperlipidemia Qualifiers: Hyperlipidemia type: unspecified Qualified Code(s): E78.5 - Hyperlipidemia , unspecified Is this a current diagnosis for this admission?: Yes Plan: Continue her home medication (7) GERD (gastroesophageal reflux disease) Qualifiers: Esophagitis presence: without esophagitis Qualified Code(s): K21.9 - Gastro -esophageal reflux disease without esophagitis Is this a current diagnosis for this admission?: Yes Plan: Continue PPI
[2018-01-13] MEDS: HEPARIN SOD (PORCINE) 5,000 UNIT/ML 1 ML SYRINGE SUBCUT SCH ×3 (05:10→21:06)
[2018-01-13] MEDS: AMLODIPINE BESYLATE 10 MG TABLET PO SCH (09:49)
[2018-01-13] MEDS: DOCUSATE SODIUM 100 MG CAPSULE PO SCH ×2 (09:49→17:41)
[2018-01-13 12:37] LABS: APPEARANCE,URINE SLIGHTLY-CLOUDY; BILIRUBIN,URINE NEGATIVE (NEGATIVE); COLOR,URINE YELLOW; GLUCOSE, URINE NEGATIVE (NEGATIVE); KETONES,URINE NEGATIVE (NEGATIVE); LEUKOCYTE ESTERASE,URINE LARGE (NEGATIVE); NITRITE,URINE NEGATIVE (NEGATIVE); PROTEIN,URINE NEGATIVE (NEGATIVE); URINE SPECIFIC GRAVITY 1.008
--- NOTE | 2018-01-13 14:41 | PDOC PROGRESS REPORT ---
Subjective Subjective:: No new complaints. No significant change overnight. Patient is eating well and drinking adequately. No fever nausea or vomiting. Reason For Visit: ENCEPHALOPATHY, FALL, MALNUTRITION Physical Exam Vital Signs: Temp Pulse Resp BP Pulse Ox 97.6 F 95 14 111/75 96 01/13/18 08:22 01/13/18 09:48 01/13/18 08:22 01/13/18 09:48 01/13/18 08:22 Intake & Output 01/12/18 01/13/18 01/14/18 06:59 06:59 06:59 Intake Total 390 620 Output Total 1050 800 Balance -660 -180 Weight 45.1 kg 46 kg General appearance: PRESENT: no acute distress Eye exam: PRESENT: conjunctiva pink Mouth exam: PRESENT: moist Neck exam: ABSENT: carotid bruit, JVD, lymphadenopathy, thyromegaly Cardiovascular exam: PRESENT: RRR. ABSENT: diastolic murmur, rubs, systolic murmur GI/Abdominal exam: PRESENT: normal bowel sounds, soft. ABSENT: distended, guarding, mass, organolmegaly, rebound, tenderness Neurological exam: PRESENT: alert, awake Results Laboratory Results: 01/11/18 05:03 01/12/18 05:24 01/13/18 12:11 Urine Color YELLOW Urine Appearance SLIGHTLY-CLOUDY Urine pH 8.0 Ur Specific [place] 1.008 Urine Protein NEGATIVE Urine Glucose (UA) NEGATIVE Urine Ketones NEGATIVE Urine Blood SMALL H Urine Nitrite NEGATIVE Ur Leukocyte Esterase LARGE H Urine WBC (Auto) >182 Urine RBC (Auto) 1 01/10/18 01/10/18 01/10/18 01:10 01:10 07:46 Creatine Kinase 86 118 CK-MB (CK-2) 1.50 Troponin I 0.069 01/10/18 01/10/18 01/10/18 07:46 13:38 13:38 Creatine Kinase 134 CK-MB (CK-2) 1.79 2.06 Troponin I 0.070 0.068 Impressions: Chest X-Ray 01/09/18 18:40 IMPRESSION: NO ACUTE RADIOGRAPHIC FINDING IN THE CHEST. Head CT 01/09/18 19:15 IMPRESSION: NORMAL BRAIN CT WITHOUT CONTRAST. EVIDENCE OF ACUTE STROKE: NO. Assessment & Plan - Diagnosis (1) AMS, due to metabolic encephalopathy Is this a current diagnosis for this admission?: Yes Plan: Improving (2) Hypokalemia Is this a current diagnosis for this admission?: Yes Plan: Resolved (3) Acute kidney injury Is this a current diagnosis for this admission?: Yes Plan: Resolved (4) Advanced vascular dementia Is this a current diagnosis for this admission?: Yes Plan: Continue her home medication and monitor (5) Hypertension Qualifiers: Hypertension type: essential hypertension Qualified Code(s): I10 - Essential (primary) hypertension Is this a current diagnosis for this admission?: Yes Plan: Continue her home medication (6) Hyperlipidemia Qualifiers: Hyperlipidemia type: unspecified Qualified Code(s): E78.5 - Hyperlipidemia , unspecified Is this a current diagnosis for this admission?: Yes Plan: Continue her home medication (7) GERD (gastroesophageal reflux disease) Qualifiers: Esophagitis presence: without esophagitis Qualified Code(s): K21.9 - Gastro -esophageal reflux disease without esophagitis Is this a current diagnosis for this admission?: Yes Plan: Continue PPI
[2018-01-13] MEDS ORDERED: CHOLECALCIFEROL (D3) 1,000 UNIT TABLET PO SCH (14:45)
[2018-01-13] MEDS ORDERED: CHOLECALCIFEROL (D3) 1,000 UNIT TABLET PO ONE (17:00)
[2018-01-13] MEDS ORDERED: CHLORTHALIDONE 25 MG TABLET PO ONE (18:45)
[2018-01-13] MEDS ORDERED: ATENOLOL 50 MG TABLET PO ONE (18:45)
[2018-01-13] MEDS ORDERED: CEFTRIAXONE INJ 500 MG VIAL ONE (21:19)
[2018-01-13] MEDS ORDERED: CEFTRIAXONE 1 GM/D5W RTU 1 GM/50 ML RTUPB IV SCH (22:00)
[2018-01-14] MEDS ORDERED: METOPROLOL TARTRATE PF/INJ 5 MG/5 ML SDV IV ONE (00:45)
[2018-01-14] MEDS: HEPARIN SOD (PORCINE) 5,000 UNIT/ML 1 ML SYRINGE SUBCUT SCH ×3 (05:13→23:19)
[2018-01-14] MEDS: CHOLECALCIFEROL (D3) 1,000 UNIT TABLET PO SCH (09:59)
[2018-01-14] MEDS: DOCUSATE SODIUM 100 MG CAPSULE PO SCH ×2 (09:59→17:38)
[2018-01-14] MEDS: ATENOLOL 50 MG TABLET PO SCH (09:59)
[2018-01-14] MEDS: AMLODIPINE BESYLATE 10 MG TABLET PO SCH (10:00)
[2018-01-14] MEDS: CHLORTHALIDONE 25 MG TABLET PO SCH (10:00)
[2018-01-14] MEDS ORDERED: CEFTRIAXONE SODIUM 1,000 MG in NORMAL SALINE 50 ML IV SCH (10:00)
--- NOTE | 2018-01-14 14:44 | PDOC PROGRESS REPORT ---
Subjective Subjective:: This is 87 years old female patient with past medical history of advanced vascular dementia, hypertension, hyperlipidemia, hypothyroidism and gastroesophageal reflux disease brought by family members with chief complaint of altered mental status. At her baseline patient is very independent to her activities of daily living but the last 2 weeks patient refused to get out of bed and doing her other her daily routines. On arrival to the ER patient was disheveled and incoherent. Her blood work shows hypokalemia with potassium of 2.8 and acute kidney injury. Currently both acute kidney injury and hypokalemia has resolved. Her daughter states that she is no more able to take care of her and wants her to be placed in assisted living. retail planner has been working on it. Reason For Visit: ENCEPHALOPATHY, FALL, MALNUTRITION Physical Exam Vital Signs: Temp Pulse Resp BP Pulse Ox 98.1 F 69 14 125/67 90 L 01/14/18 13:00 01/14/18 14:00 01/14/18 13:00 01/14/18 13:00 01/14/18 13:00 Intake & Output 01/13/18 01/14/18 01/15/18 06:59 06:59 06:59 Intake Total 620 713 Output Total 800 1000 Balance -180 -287 Weight 46 kg 46.8 kg General appearance: PRESENT: no acute distress, well-developed, well-nourished Head exam: PRESENT: atraumatic, normocephalic Eye exam: PRESENT: conjunctiva pink, EOMI, PERRLA. ABSENT: scleral icterus Ear exam: PRESENT: normal external ear exam Mouth exam: PRESENT: moist, tongue midline Neck exam: ABSENT: carotid bruit, JVD, lymphadenopathy, thyromegaly Respiratory exam: PRESENT: clear to auscultation fredo. ABSENT: rales, rhonchi, wheezes Cardiovascular exam: PRESENT: RRR. ABSENT: diastolic murmur, rubs, systolic murmur Pulses: PRESENT: normal dorsalis pedis pul Vascular exam: PRESENT: normal capillary refill GI/Abdominal exam: PRESENT: normal bowel sounds, soft. ABSENT: distended, guarding, mass, organolmegaly, rebound, tenderness Rectal exam: PRESENT: deferred Extremities exam: PRESENT: full ROM. ABSENT: calf tenderness, clubbing, pedal edema Neurological exam: PRESENT: alert, awake, oriented to person, oriented to place , CN II-XII grossly intact. ABSENT: motor sensory deficit Psychiatric exam: PRESENT: appropriate affect, normal mood. ABSENT: homicidal ideation, suicidal ideation Skin exam: PRESENT: dry, intact, warm. ABSENT: cyanosis, rash Results Laboratory Results: 01/11/18 05:03 01/12/18 05:24 01/10/18 01/10/18 01/10/18 01:10 01:10 07:46 Creatine Kinase 86 118 CK-MB (CK-2) 1.50 Troponin I 0.069 01/10/18 01/10/18 01/10/18 07:46 13:38 13:38 Creatine Kinase 134 CK-MB (CK-2) 1.79 2.06 Troponin I 0.070 0.068 Impressions: Chest X-Ray 01/09/18 18:40 IMPRESSION: NO ACUTE RADIOGRAPHIC FINDING IN THE CHEST. Head CT 01/09/18 19:15 IMPRESSION: NORMAL BRAIN CT WITHOUT CONTRAST. EVIDENCE OF ACUTE STROKE: NO. Assessment & Plan - Diagnosis (1) AMS, due to metabolic encephalopathy Is this a current diagnosis for this admission?: Yes Plan: Improving (2) Hypokalemia Is this a current diagnosis for this admission?: Yes Plan: Resolved (3) Acute kidney injury Is this a current diagnosis for this admission?: Yes Plan: Resolved (4) Advanced vascular dementia Is this a current diagnosis for this admission?: Yes Plan: Continue her home medication and monitor (5) Hypertension Qualifiers: Hypertension type: essential hypertension Qualified Code(s): I10 - Essential (primary) hypertension Is this a current diagnosis for this admission?: Yes Plan: Continue her home medication (6) Hyperlipidemia Qualifiers: Hyperlipidemia type: unspecified Qualified Code(s): E78.5 - Hyperlipidemia , unspecified Is this a current diagnosis for this admission?: Yes Plan: Continue her home medication (7) GERD (gastroesophageal reflux disease) Qualifiers: Esophagitis presence: without esophagitis Qualified Code(s): K21.9 - Gastro -esophageal reflux disease without esophagitis Is this a current diagnosis for this admission?: Yes Plan: Continue PPI
[2018-01-14] MEDS: CEFTRIAXONE SODIUM 1,000 MG in NORMAL SALINE 50 ML IV SCH (23:14)
[2018-01-15] MEDS: HEPARIN SOD (PORCINE) 5,000 UNIT/ML 1 ML SYRINGE SUBCUT SCH ×3 (06:28→21:15)
[2018-01-15] MEDS: AMLODIPINE BESYLATE 10 MG TABLET PO SCH (10:53)
[2018-01-15] MEDS: DOCUSATE SODIUM 100 MG CAPSULE PO SCH ×2 (10:53→17:29)
[2018-01-15] MEDS: CHOLECALCIFEROL (D3) 1,000 UNIT TABLET PO SCH (10:54)
[2018-01-15] MEDS: ATENOLOL 50 MG TABLET PO SCH (10:54)
[2018-01-15] MEDS: CHLORTHALIDONE 25 MG TABLET PO SCH (10:55)
--- NOTE | 2018-01-15 18:33 | PDOC PROGRESS REPORT ---
Subjective Progress Note for:: 01/15/18 Subjective:: The patient is resting comfortably. No new complaints. Reason For Visit: ENCEPHALOPATHY, FALL, MALNUTRITION Physical Exam Vital Signs: Temp Pulse Resp BP Pulse Ox 98.6 F 86 16 118/66 97 01/15/18 17:00 01/15/18 17:00 01/15/18 17:00 01/15/18 17:00 01/15/18 17:00 Intake & Output 01/14/18 01/15/18 01/16/18 06:59 06:59 06:59 Intake Total 713 620 Output Total 1000 925 Balance -287 -305 Weight 46.8 kg 47.7 kg General appearance: PRESENT: no acute distress, cooperative Respiratory exam: PRESENT: other - No increased work of breathing. No wheezes, rales, or rhonchi. No tactile fremitus. Cardiovascular exam: PRESENT: RRR. ABSENT: gallop, rubs, systolic murmur GI/Abdominal exam: PRESENT: normal bowel sounds, soft. ABSENT: hernia, mass, organolmegaly, tenderness Rectal exam: PRESENT: deferred Extremities exam: ABSENT: clubbing, tenderness, +1 edema Musculoskeletal exam: ABSENT: deformity, dislocation, normal inspection Neurological exam: PRESENT: alert, awake, CN II-XII grossly intact. ABSENT: motor sensory deficit Psychiatric exam: PRESENT: appropriate affect, normal mood Skin exam: PRESENT: dry, intact, warm Results Laboratory Results: 01/11/18 05:03 01/12/18 05:24 01/10/18 01/10/18 01/10/18 01:10 01:10 07:46 Creatine Kinase 86 118 CK-MB (CK-2) 1.50 Troponin I 0.069 01/10/18 01/10/18 01/10/18 07:46 13:38 13:38 Creatine Kinase 134 CK-MB (CK-2) 1.79 2.06 Troponin I 0.070 0.068 Impressions: Chest X-Ray 01/09/18 18:40 IMPRESSION: NO ACUTE RADIOGRAPHIC FINDING IN THE CHEST. Head CT 01/09/18 19:15 IMPRESSION: NORMAL BRAIN CT WITHOUT CONTRAST. EVIDENCE OF ACUTE STROKE: NO. Assessment & Plan - Diagnosis (1) AMS, due to metabolic encephalopathy Is this a current diagnosis for this admission?: Yes Plan: Clearing, but the patient's daughter states that she is no longer able to care for her at home. Awaiting placement. (2) Acute kidney injury Is this a current diagnosis for this admission?: Yes Plan: Resolved. (3) Advanced vascular dementia Is this a current diagnosis for this admission?: Yes Plan: Stable, chronic. (4) Dehydration Is this a current diagnosis for this admission?: Yes Plan: Resolved. (5) Encephalopathy Is this a current diagnosis for this admission?: Yes Plan: Improving. Pt is awaiting placement. - Time Time Spent with patient: 25-34 minutes Medications reviewed and adjusted accordingly: Yes Anticipated discharge: SNF
[2018-01-15] MEDS: CEFTRIAXONE SODIUM 1,000 MG in NORMAL SALINE 50 ML IV SCH (21:08)
[2018-01-16] MEDS: HEPARIN SOD (PORCINE) 5,000 UNIT/ML 1 ML SYRINGE SUBCUT SCH ×3 (05:21→21:33)
[2018-01-16] MEDS: DOCUSATE SODIUM 100 MG CAPSULE PO SCH ×2 (09:50→17:26)
[2018-01-16] MEDS: ATENOLOL 50 MG TABLET PO SCH (09:50)
[2018-01-16] MEDS: CHOLECALCIFEROL (D3) 1,000 UNIT TABLET PO SCH (09:50)
[2018-01-16] MEDS: CHLORTHALIDONE 25 MG TABLET PO SCH (09:50)
[2018-01-16] MEDS: AMLODIPINE BESYLATE 10 MG TABLET PO SCH (12:35)
--- NOTE | 2018-01-16 17:30 | PDOC PROGRESS REPORT ---
Subjective Progress Note for:: 01/16/18 Subjective:: Nursing reports that the patient's family was concerned that the patient was "more demented" today. Oddly I find that she was less oriented and interactive yesterday. She knows where she is. She has difficulty with the date, but no more so than yesterday. She is attentive and appropriate for me. Reason For Visit: ENCEPHALOPATHY, FALL, MALNUTRITION Physical Exam Vital Signs: Temp Pulse Resp BP Pulse Ox 98.7 F 76 16 121/56 L 96 01/16/18 15:36 01/16/18 15:36 01/16/18 15:36 01/16/18 15:36 01/16/18 15:36 Intake & Output 01/15/18 01/16/18 01/17/18 06:59 06:59 06:59 Intake Total 620 942 384 Output Total 925 500 750 Balance -305 442 -366 Weight 47.7 kg 50.2 kg General appearance: PRESENT: no acute distress, cooperative, thin Respiratory exam: PRESENT: other - No increased work of breathing. No wheezes, rales, or rhonchi. No tactile fremitus. Cardiovascular exam: PRESENT: RRR. ABSENT: gallop, rubs, systolic murmur Pulses: PRESENT: other - Dimished distal pulses. GI/Abdominal exam: PRESENT: normal bowel sounds, soft. ABSENT: distended, hernia, mass, tenderness Rectal exam: PRESENT: deferred Extremities exam: ABSENT: clubbing, joint swelling, tenderness, +1 edema Musculoskeletal exam: PRESENT: normal inspection. ABSENT: deformity, dislocation, tenderness Neurological exam: PRESENT: alert, awake, oriented to person, oriented to place , oriented to situation, CN II-XII grossly intact. ABSENT: oriented to time, motor sensory deficit Psychiatric exam: PRESENT: appropriate affect, normal mood Skin exam: PRESENT: dry, intact, warm Results Laboratory Results: 01/11/18 05:03 01/12/18 05:24 01/10/18 01/10/18 01/10/18 01:10 01:10 07:46 Creatine Kinase 86 118 CK-MB (CK-2) 1.50 Troponin I 0.069 01/10/18 01/10/18 01/10/18 07:46 13:38 13:38 Creatine Kinase 134 CK-MB (CK-2) 1.79 2.06 Troponin I 0.070 0.068 Impressions: Chest X-Ray 01/09/18 18:40 IMPRESSION: NO ACUTE RADIOGRAPHIC FINDING IN THE CHEST. Head CT 01/09/18 19:15 IMPRESSION: NORMAL BRAIN CT WITHOUT CONTRAST. EVIDENCE OF ACUTE STROKE: NO. Assessment & Plan - Diagnosis (1) AMS, due to metabolic encephalopathy Is this a current diagnosis for this admission?: Yes Plan: The patient seems more interactive and "with it" today, although I hear that the family feels that she is "more demented". will mobilize to improve mentation. Awaiting placement. (2) Acute kidney injury Is this a current diagnosis for this admission?: Yes Plan: Resolved. (3) Advanced vascular dementia Is this a current diagnosis for this admission?: Yes Plan: Stable, chronic. (4) Dehydration Is this a current diagnosis for this admission?: Yes Plan: Resolved. (5) Encephalopathy Is this a current diagnosis for this admission?: Yes Plan: Improving. Pt is awaiting placement. - Time Time Spent with patient: 25-34 minutes Medications reviewed and adjusted accordingly: Yes
[2018-01-16] MEDS: CEFTRIAXONE SODIUM 1,000 MG in NORMAL SALINE 50 ML IV SCH (21:33)
[2018-01-17] MEDS: HEPARIN SOD (PORCINE) 5,000 UNIT/ML 1 ML SYRINGE SUBCUT SCH ×3 (05:07→21:35)
[2018-01-17] MEDS: CHLORTHALIDONE 25 MG TABLET PO SCH ×2 (09:22→09:25)
[2018-01-17] MEDS: DOCUSATE SODIUM 100 MG CAPSULE PO SCH ×2 (09:22→17:52)
[2018-01-17] MEDS: CHOLECALCIFEROL (D3) 1,000 UNIT TABLET PO SCH (09:23)
[2018-01-17] MEDS: ATENOLOL 50 MG TABLET PO SCH (09:24)
[2018-01-17] MEDS: AMLODIPINE BESYLATE 10 MG TABLET PO SCH (09:24)
--- NOTE | 2018-01-17 17:04 | PDOC PROGRESS REPORT ---
Subjective Progress Note for:: 01/17/18 Subjective:: The patient is resting comfortably. No new complaints. Reason For Visit: ENCEPHALOPATHY, FALL, MALNUTRITION Physical Exam Vital Signs: Temp Pulse Resp BP Pulse Ox 98.3 F 87 16 90/50 L 92 01/17/18 16:00 01/17/18 16:00 01/17/18 16:00 01/17/18 16:00 01/17/18 16:00 Intake & Output 01/16/18 01/17/18 01/18/18 06:59 06:59 06:59 Intake Total 942 434 592 Output Total 500 750 775 Balance 572 -316 -183 Weight 50.2 kg 45.5 kg 45.5 kg General appearance: PRESENT: no acute distress, cooperative, thin, other - elderly, weak, and frail Respiratory exam: PRESENT: other - No increased work of breathing.. ABSENT: rales, rhonchi, wheezes Cardiovascular exam: PRESENT: RRR, other - No lateral PMI. No thrills.. ABSENT : gallop, rubs, systolic murmur GI/Abdominal exam: PRESENT: soft. ABSENT: hernia, mass, organolmegaly, tenderness Extremities exam: ABSENT: clubbing, pedal edema, tenderness, +1 edema Musculoskeletal exam: PRESENT: normal inspection. ABSENT: deformity, dislocation, tenderness Neurological exam: PRESENT: alert, awake, oriented to person, oriented to place , oriented to time, oriented to situation, CN II-XII grossly intact. ABSENT: motor sensory deficit Psychiatric exam: PRESENT: appropriate affect, normal mood Skin exam: PRESENT: dry, intact, warm Results Laboratory Results: 01/11/18 05:03 01/12/18 05:24 01/10/18 01/10/18 01/10/18 01:10 01:10 07:46 Creatine Kinase 86 118 CK-MB (CK-2) 1.50 Troponin I 0.069 01/10/18 01/10/18 01/10/18 07:46 13:38 13:38 Creatine Kinase 134 CK-MB (CK-2) 1.79 2.06 Troponin I 0.070 0.068 Impressions: Chest X-Ray 01/09/18 18:40 IMPRESSION: NO ACUTE RADIOGRAPHIC FINDING IN THE CHEST. Head CT 01/09/18 19:15 IMPRESSION: NORMAL BRAIN CT WITHOUT CONTRAST. EVIDENCE OF ACUTE STROKE: NO. Assessment & Plan - Diagnosis (1) AMS, due to metabolic encephalopathy Is this a current diagnosis for this admission?: Yes Plan: The patient's mental status seems stable. Awaiting placement. (2) Acute kidney injury Is this a current diagnosis for this admission?: Yes Plan: Resolved. Monitor BMP. (3) Advanced vascular dementia Is this a current diagnosis for this admission?: Yes Plan: Stable, chronic. (4) Dehydration Is this a current diagnosis for this admission?: Yes Plan: Resolved. (5) Encephalopathy Is this a current diagnosis for this admission?: Yes Plan: The patient's mental status appears stable. Pt is awaiting placement. - Time Time Spent with patient: 25-34 minutes Anticipated discharge: SNF Within: when bed available
[2018-01-17] MEDS: CEFTRIAXONE SODIUM 1,000 MG in NORMAL SALINE 50 ML IV SCH (22:15)
[2018-01-18] MEDS: HEPARIN SOD (PORCINE) 5,000 UNIT/ML 1 ML SYRINGE SUBCUT SCH ×3 (05:19→22:12)
[2018-01-18 05:34] LABS: ABSOLUTE EOSINOPHILS # (AUTO) 0.1 10^3/uL (0.0-0.6); ABSOLUTE LYMPHOCYTES (AUTO) 1.7 10^3/uL (0.5-4.7); ABSOLUTE MONOCYTES (AUTO) 0.9 10^3/uL (0.1-1.4); ABSOLUTE NEUT (AUTO) 3.1 10^3/uL (1.7-8.2); BASOPHILS % (AUTO) 0.3 % (0-2); EOSINOPHILS % (AUTO) 1.5 % (0-6); HEMATOCRIT 31.3 % (36.0-47.0); LYMPHOCYTES % (AUTO) 28.9 % (13-45); MEAN CORPUSCULAR HEMOGLOBIN 30.5 pg (27.0-33.4); MEAN CORPUSCULAR VOLUME 87 fl (80-97); MONOCYTES % (AUTO) 15.9 % (3-13); PLATELET COUNT 192 10^3/uL (150-450); RED BLOOD COUNT 3.59 10^6/uL (3.72-5.28); RED CELL DISTRIBUTION WIDTH 15.9 % (11.5-14.0); SEGMENTED NEUTROPHILS % (AUTO) 53.4 % (42-78); TOTAL CELLS COUNTED % (AUTO) 100 %; WHITE BLOOD COUNT 5.7 10^3/uL (4.0-10.5)
[2018-01-18 06:04] LABS: ANION GAP 13 (5-19); BLOOD UREA NITROGEN 25 mg/dL (7-20); CALCIUM 8.7 mg/dL (8.4-10.2); CARBON DIOXIDE 30 mmol/L (22-30); CHLORIDE 92 mmol/L (98-107); GLUCOSE 114 mg/dL (75-110); POTASSIUM 3.2 mmol/L (3.6-5.0); SODIUM 135.3 mmol/L (137-145)
[2018-01-18] MEDS: CHOLECALCIFEROL (D3) 1,000 UNIT TABLET PO SCH (10:03)
[2018-01-18] MEDS: DOCUSATE SODIUM 100 MG CAPSULE PO SCH ×2 (10:03→17:30)
[2018-01-18] MEDS: AMLODIPINE BESYLATE 10 MG TABLET PO SCH (10:03)
[2018-01-18] MEDS: CHLORTHALIDONE 25 MG TABLET PO SCH (10:04)
[2018-01-18] MEDS: ATENOLOL 50 MG TABLET PO SCH (10:04)
[2018-01-18] MEDS ORDERED: NORMAL SALINE 1000 ML 250 ML IV ONE (18:48)
--- NOTE | 2018-01-18 18:53 | PDOC PROGRESS REPORT ---
Subjective Progress Note for:: 01/18/18 Subjective:: The patient is resting comfortably. No new complaints. Reason For Visit: ENCEPHALOPATHY, FALL, MALNUTRITION Physical Exam Vital Signs: Temp Pulse Resp BP Pulse Ox 98.5 F 67 18 98/53 L 98 01/18/18 15:46 01/18/18 15:46 01/18/18 15:46 01/18/18 15:46 01/18/18 15:46 Intake & Output 01/17/18 01/18/18 01/19/18 06:59 06:59 06:59 Intake Total 434 879 549 Output Total 750 1175 1150 Balance -316 -823 -606 Weight 45.5 kg 46.2 kg General appearance: PRESENT: other - Elderly, weak, and frail. Respiratory exam: PRESENT: other - No increased work of breathing. No wheezes, rales, or rhonchi. No tactile fremitus. Cardiovascular exam: PRESENT: RRR. ABSENT: gallop, rubs, systolic murmur GI/Abdominal exam: PRESENT: normal bowel sounds, soft, other - scaffoid. ABSENT : hernia, mass, organolmegaly, tenderness Rectal exam: PRESENT: deferred Psychiatric exam: PRESENT: depressed Skin exam: PRESENT: dry, intact, warm Results Laboratory Results: 01/18/18 04:37 01/18/18 04:37 01/18/18 01/18/18 04:37 04:37 WBC 5.7 RBC 3.59 L Hgb 11.0 L Hct 31.3 L MCV 87 MCH 30.5 MCHC 35.0 RDW 15.9 H Plt Count 192 Seg Neutrophils % 53.4 Lymphocytes % 28.9 Monocytes % 15.9 H Eosinophils % 1.5 Basophils % 0.3 Absolute Neutrophils 3.1 Absolute Lymphocytes 1.7 Absolute Monocytes 0.9 Absolute Eosinophils 0.1 Absolute Basophils 0.0 Sodium 135.3 L Potassium 3.2 L Chloride 92 L Carbon Dioxide 30 Anion Gap 13 BUN 25 H Creatinine 0.60 Est GFR ( Amer) > 60 Est GFR (Non-Af Amer) > 60 Glucose 114 H Calcium 8.7 01/10/18 01/10/18 01/10/18 01:10 01:10 07:46 Creatine Kinase 86 118 CK-MB (CK-2) 1.50 Troponin I 0.069 0801/10/18 01/10/18 07:46 13:38 13:38 Creatine Kinase 134 CK-MB (CK-2) 1.79 2.06 Troponin I 0.070 0.068 Impressions: Chest X-Ray 01/09/18 18:40 IMPRESSION: NO ACUTE RADIOGRAPHIC FINDING IN THE CHEST. Head CT 01/09/18 19:15 IMPRESSION: NORMAL BRAIN CT WITHOUT CONTRAST. EVIDENCE OF ACUTE STROKE: NO. Assessment & Plan - Diagnosis (1) AMS, due to metabolic encephalopathy Is this a current diagnosis for this admission?: Yes (2) Acute kidney injury Is this a current diagnosis for this admission?: Yes (3) Advanced vascular dementia Is this a current diagnosis for this admission?: Yes (4) Dehydration Is this a current diagnosis for this admission?: Yes (5) Encephalopathy Is this a current diagnosis for this admission?: Yes - Time Time Spent with patient: 15-24 minutes Anticipated discharge: SNF Within: when bed available
[2018-01-18] MEDS ORDERED: (PENDING PHARMACY ID) (Donepezil Hcl [Aricept] 10 MG) PO SCH (19:00)
[2018-01-18] MEDS ORDERED: [UNRECOGNIZED DRUG - REMARK] PO SCH (19:00)
[2018-01-18] MEDS: DONEPEZIL HCL 5 MG TABLET PO SCH (22:11)
[2018-01-18] MEDS: ATORVASTATIN CALCIUM 40 MG TABLET PO SCH (22:12)
[2018-01-18] MEDS: CEFTRIAXONE SODIUM 1,000 MG in NORMAL SALINE 50 ML IV SCH (22:12)
[2018-01-19] MEDS: HEPARIN SOD (PORCINE) 5,000 UNIT/ML 1 ML SYRINGE SUBCUT SCH ×3 (05:52→21:24)
[2018-01-19] MEDS: LEVOTHYROXINE SODIUM 0.05 MG TABLET PO SCH (05:52)
[2018-01-19] MEDS: CHLORTHALIDONE 25 MG TABLET PO SCH (10:29)
[2018-01-19] MEDS: ATENOLOL 50 MG TABLET PO SCH (10:29)
[2018-01-19] MEDS: AMLODIPINE BESYLATE 10 MG TABLET PO SCH (10:29)
[2018-01-19] MEDS: CHOLECALCIFEROL (D3) 1,000 UNIT TABLET PO SCH (10:34)
[2018-01-19] MEDS: DOCUSATE SODIUM 100 MG CAPSULE PO SCH ×2 (10:34→17:13)
[2018-01-19] MEDS: DONEPEZIL HCL 5 MG TABLET PO SCH (10:34)
--- NOTE | 2018-01-19 18:38 | PDOC PROGRESS REPORT ---
Subjective Progress Note for:: 01/19/18 Subjective:: The patient is sitting up on the edge of the bed. She is eating almost all of her lunch. Reason For Visit: ENCEPHALOPATHY, FALL, MALNUTRITION Physical Exam Vital Signs: Temp Pulse Resp BP Pulse Ox 98.6 F 86 18 109/46 L 96 01/19/18 16:43 01/19/18 16:43 01/19/18 16:43 01/19/18 16:43 01/19/18 16:43 Intake & Output 01/18/18 01/19/18 01/20/18 06:59 06:59 06:59 Intake Total 879 1149 876 Output Total 1175 1950 400 Balance -296 -801 476 Weight 46.2 kg 45.2 kg General appearance: PRESENT: no acute distress, thin, other - Elderly, weak, and frail Respiratory exam: PRESENT: other - No increased work of breathing. No wheezes, rales, or rhonchi. Cardiovascular exam: PRESENT: RRR. ABSENT: gallop, rubs, systolic murmur Pulses: PRESENT: other - Diminished distal pulses. GI/Abdominal exam: PRESENT: normal bowel sounds, soft, other - scaffoid. ABSENT : hernia, mass, tenderness Extremities exam: ABSENT: clubbing, joint swelling, pedal edema Musculoskeletal exam: PRESENT: normal inspection. ABSENT: deformity, dislocation, tenderness Neurological exam: PRESENT: alert, awake, oriented to person, oriented to place , oriented to time, oriented to situation, CN II-XII grossly intact. ABSENT: motor sensory deficit Psychiatric exam: PRESENT: appropriate affect, normal mood Skin exam: PRESENT: dry, intact, warm Results Laboratory Results: 01/18/18 04:37 01/18/18 04:37 01/10/18 01/10/18 01/10/18 01:10 01:10 07:46 Creatine Kinase 86 118 CK-MB (CK-2) 1.50 Troponin I 0.069 01/10/18 01/10/18 01/10/18 07:46 13:38 13:38 Creatine Kinase 134 CK-MB (CK-2) 1.79 2.06 Troponin I 0.070 0.068 Impressions: Chest X-Ray 01/09/18 18:40 IMPRESSION: NO ACUTE RADIOGRAPHIC FINDING IN THE CHEST. Head CT 01/09/18 19:15 IMPRESSION: NORMAL BRAIN CT WITHOUT CONTRAST. EVIDENCE OF ACUTE STROKE: NO. Assessment & Plan - Diagnosis (1) AMS, due to metabolic encephalopathy Is this a current diagnosis for this admission?: Yes Plan: The patient's mental status seems stable. Awaiting placement. (2) Acute kidney injury Is this a current diagnosis for this admission?: Yes Plan: Resolved. Monitor BMP. (3) Advanced vascular dementia Is this a current diagnosis for this admission?: Yes Plan: Stable, chronic. (4) Dehydration Is this a current diagnosis for this admission?: Yes Plan: Resolved. (5) Encephalopathy Is this a current diagnosis for this admission?: Yes Plan: The patient's mental status appears stable. Pt is awaiting placement. - Time Time Spent with patient: 35 or more minutes Medications reviewed and adjusted accordingly: Yes
[2018-01-19] MEDS: ATORVASTATIN CALCIUM 40 MG TABLET PO SCH (21:24)
[2018-01-19] MEDS: CEFTRIAXONE SODIUM 1,000 MG in NORMAL SALINE 50 ML IV SCH (21:26)
[2018-01-20] MEDS: HEPARIN SOD (PORCINE) 5,000 UNIT/ML 1 ML SYRINGE SUBCUT SCH ×3 (05:15→21:41)
[2018-01-20] MEDS: LEVOTHYROXINE SODIUM 0.05 MG TABLET PO SCH (05:15)
[2018-01-20] MEDS: DONEPEZIL HCL 5 MG TABLET PO SCH (10:30)
[2018-01-20] MEDS: DOCUSATE SODIUM 100 MG CAPSULE PO SCH ×2 (10:31→17:52)
[2018-01-20] MEDS: CHOLECALCIFEROL (D3) 1,000 UNIT TABLET PO SCH (10:32)
[2018-01-20] MEDS: CHLORTHALIDONE 25 MG TABLET PO SCH (10:37)
[2018-01-20] MEDS: AMLODIPINE BESYLATE 10 MG TABLET PO SCH (10:37)
[2018-01-20] MEDS: ATENOLOL 50 MG TABLET PO SCH (10:38)
--- NOTE | 2018-01-20 16:55 | PDOC PROGRESS REPORT ---
Subjective Progress Note for:: 01/20/18 Subjective:: The patient is eating lunch. Family at bedside. No new complaitns other than she would like to get back to bed. Reason For Visit: ENCEPHALOPATHY, FALL, MALNUTRITION Physical Exam Vital Signs: Temp Pulse Resp BP Pulse Ox 98.2 F 89 20 123/54 L 100 01/20/18 15:39 01/20/18 15:39 01/20/18 15:39 01/20/18 15:39 01/20/18 15:39 Intake & Output 01/19/18 01/20/18 01/21/18 06:59 06:59 06:59 Intake Total 1149 1126 Output Total 1950 1100 Balance -801 26 Weight 45.2 kg General appearance: PRESENT: no acute distress, cooperative, thin, other - Elderly, weak, and frail. Respiratory exam: PRESENT: other - No increased work of breathing.. ABSENT: rales, rhonchi, wheezes Cardiovascular exam: PRESENT: RRR. ABSENT: gallop, rubs, tachycardia GI/Abdominal exam: PRESENT: normal bowel sounds, soft. ABSENT: hernia, mass, organolmegaly, tenderness Musculoskeletal exam: PRESENT: normal inspection. ABSENT: deformity, dislocation, tenderness Neurological exam: PRESENT: alert, awake, oriented to person, oriented to place , oriented to time, oriented to situation, CN II-XII grossly intact. ABSENT: motor sensory deficit Skin exam: PRESENT: dry, intact, warm Results Laboratory Results: 01/18/18 04:37 01/18/18 04:37 01/10/18 01/10/18 01/10/18 01:10 01:10 07:46 Creatine Kinase 86 118 CK-MB (CK-2) 1.50 Troponin I 0.069 01/10/18 01/10/18 01/10/18 07:46 13:38 13:38 Creatine Kinase 134 CK-MB (CK-2) 1.79 2.06 Troponin I 0.070 0.068 Impressions: Chest X-Ray 01/09/18 18:40 IMPRESSION: NO ACUTE RADIOGRAPHIC FINDING IN THE CHEST. Head CT 01/09/18 19:15 IMPRESSION: NORMAL BRAIN CT WITHOUT CONTRAST. EVIDENCE OF ACUTE STROKE: NO. Assessment & Plan - Diagnosis (1) AMS, due to metabolic encephalopathy Is this a current diagnosis for this admission?: Yes Plan: The patient's mental status seems stable. Awaiting placement. (2) Acute kidney injury Is this a current diagnosis for this admission?: Yes Plan: Resolved. Monitor BMP. (3) Advanced vascular dementia Is this a current diagnosis for this admission?: Yes Plan: Stable, chronic. (4) Dehydration Is this a current diagnosis for this admission?: Yes Plan: Resolved. (5) Encephalopathy Is this a current diagnosis for this admission?: Yes Plan: The patient's mental status appears stable. Pt is awaiting placement. - Time Time Spent with patient: 25-34 minutes Medications reviewed and adjusted accordingly: Yes
[2018-01-20] MEDS: ATORVASTATIN CALCIUM 40 MG TABLET PO SCH (21:41)
[2018-01-21 06:04] LABS: ANION GAP 12 (5-19); BLOOD UREA NITROGEN 17 mg/dL (7-20); CALCIUM 8.9 mg/dL (8.4-10.2); CARBON DIOXIDE 30 mmol/L (22-30); CHLORIDE 96 mmol/L (98-107); GLUCOSE 98 mg/dL (75-110); POTASSIUM 3.3 mmol/L (3.6-5.0); SODIUM 137.7 mmol/L (137-145)
[2018-01-21] MEDS: HEPARIN SOD (PORCINE) 5,000 UNIT/ML 1 ML SYRINGE SUBCUT SCH ×2 (06:33→15:50)
[2018-01-21] MEDS: LEVOTHYROXINE SODIUM 0.05 MG TABLET PO SCH (06:33)
[2018-01-21] MEDS: AMLODIPINE BESYLATE 10 MG TABLET PO SCH (09:57)
[2018-01-21] MEDS: CHOLECALCIFEROL (D3) 1,000 UNIT TABLET PO SCH (09:57)
[2018-01-21] MEDS: DOCUSATE SODIUM 100 MG CAPSULE PO SCH (09:57)
[2018-01-21] MEDS: ATENOLOL 50 MG TABLET PO SCH (09:58)
[2018-01-21] MEDS: DONEPEZIL HCL 5 MG TABLET PO SCH (09:58)
[2018-01-21] MEDS: CHLORTHALIDONE 25 MG TABLET PO SCH (09:59)
[2018-01-21] MEDS ORDERED: CYANOCOBALAMIN/FA/PYRIDOXINE TABLET PO SCH (10:00)
--- NOTE | 2018-01-21 10:32 | PDOC TRANSFER SUMMARY ---
General Admission Date/PCP: 01/09/18 21:48 ANNE-MARIE FERRER MD Resuscitation Status: Full Code - Transfer Diagnosis (1) AMS, due to metabolic encephalopathy Is this a current diagnosis for this admission?: Yes (2) Acute kidney injury Is this a current diagnosis for this admission?: Yes (3) Advanced vascular dementia Is this a current diagnosis for this admission?: Yes (4) Dehydration Is this a current diagnosis for this admission?: Yes (5) Encephalopathy Is this a current diagnosis for this admission?: Yes - Transfer Medications Home Medications: Atorvastatin Calcium [Lipitor 40 mg Tablet] 40 mg PO QHS 01/10/18 Donepezil HCl [Aricept] 10 mg PO DAILY 01/10/18 Leucovorin/Pyridox/Mecobalamin [Folinic-Plus Caplet] 1 tab PO DAILY 01/10/18 Levothyroxine Sodium [Synthroid] 50 mcg PO Q6AM 01/10/18 Transfer Medications: Current Medications Acetaminophen (Tylenol 325 Mg Tablet) 325 mg PO Q4HP PRN PRN Reason: FOR PAIN OR TEMP Stop: 02/08/18 22:15 Last Admin: 01/18/18 15:09 Dose: 325 mg Albuterol/Ipratropium (Duoneb 3 Ml Ampul) 3 ml NEB [id number] PRN PRN Reason: SHORTNESS OF BREATH Stop: 02/08/18 22:15 Amlodipine Besylate (Norvasc 10 Mg Tablet) 10 mg PO DAILY SOLANGE Stop: 02/09/18 09:59 Last Admin: 01/21/18 09:57 Dose: 10 mg Atenolol (Tenormin 50 Mg Tablet) 50 mg PO DAILY SOLANGE Stop: 02/13/18 09:59 Last Admin: 01/21/18 09:58 Dose: 50 mg Atorvastatin Calcium (Lipitor 40 Mg Tablet) 40 mg PO QHS SOLANGE Stop: 02/17/18 21:59 Last Admin: 01/20/18 21:41 Dose: 40 mg Chlorthalidone (Hygroton 25 Mg Tablet) 25 mg PO DAILY SOLANGE Stop: 02/13/18 09:59 Last Admin: 01/21/18 09:59 Dose: 25 mg Cholecalciferol (Vitamin D3 1000 Unit Tablet) 2,000 unit PO DAILY SOLANGE Stop: 02/13/18 09:59 Last Admin: 01/21/18 09:57 Dose: 2,000 unit Docusate Sodium (Colace 100 Mg Capsule) 100 mg PO BID SOLANGE Stop: 02/09/18 09:59 Last Admin: 01/21/18 09:57 Dose: 100 mg Donepezil HCl (Aricept 5 Mg Tablet) 10 mg PO DAILY SOLANGE Stop: 02/17/18 19:29 Last Admin: 01/21/18 09:58 Dose: 10 mg Folic Acid (Folbee Tablet) 1 tab PO DAILY SOLANGE Stop: 02/20/18 09:59 Last Admin: 01/21/18 09:59 Dose: 1 tab Heparin Sodium (Porcine) (Heparin Inj 5,000 Units/Ml 1 Ml Syringe) 5,000 unit SUBCUT Q8 SOLANGE Stop: 02/09/18 05:59 Last Admin: 01/21/18 06:33 Dose: 5,000 unit Levothyroxine Sodium (Synthroid 0.05 Mg Tablet) 0.05 mg PO Q6AM SOLANGE Stop: 02/18/18 05:59 Last Admin: 01/21/18 06:33 Dose: 0.05 mg - Allergies Allergies/Adverse Reactions: No Known Allergies Allergy (Unverified 10/26/11 12:48) - Diet/Activity Discharge Diet: Cardiac Hospital Course Hospital Course: The patient was admitted to [facility] on 01/09/2018 with dehydration, acute on chronic kidney disease, and encephalopathy which complicated her baseline dementia. She was given IV fluids cautiously and her home medications (diuretics and antihypertensives) were held. Her renal status and mental status returned to baseline. The family had decided that they can no longer care for her at home. She will be discharged today in good condition to a rehab facility. Physical Exam Vital Signs: Temp Pulse Resp BP Pulse Ox 98.6 F 84 18 115/49 L 93 01/21/18 07:36 01/21/18 07:36 01/21/18 07:36 01/21/18 07:36 01/21/18 07:36 Intake & Output 01/20/18 01/21/18 01/22/18 06:59 06:59 06:59 Intake Total 1126 755 Output Total 1100 2700 Balance 26 -1945 Weight 46.7 kg General appearance: PRESENT: no acute distress, cooperative, other - Elderly, weak, and frail. Respiratory exam: PRESENT: other - No increased work of breathing. No wheezes, rales, or rhonchi. No tactile fremitus. Cardiovascular exam: PRESENT: RRR. ABSENT: gallop, rubs, systolic murmur GI/Abdominal exam: PRESENT: normal bowel sounds, soft. ABSENT: hernia, mass, organolmegaly, tenderness Extremities exam: ABSENT: clubbing, pedal edema, tenderness Musculoskeletal exam: PRESENT: normal inspection. ABSENT: deformity, dislocation, tenderness Neurological exam: PRESENT: alert, awake, oriented to person, oriented to place , CN II-XII grossly intact. ABSENT: motor sensory deficit Psychiatric exam: PRESENT: appropriate affect, normal mood Skin exam: PRESENT: dry, intact, warm Results Laboratory Results: 01/18/18 04:37 01/21/18 05:11 01/21/18 05:11 Sodium 137.7 Potassium 3.3 L Chloride 96 L Carbon Dioxide 30 Anion Gap 12 BUN 17 Creatinine 0.52 Est GFR ( Amer) > 60 Est GFR (Non-Af Amer) > 60 Glucose 98 Calcium 8.9 01/10/18 01/10/18 01/10/18 01:10 01:10 07:46 Creatine Kinase 86 118 CK-MB (CK-2) 1.50 Troponin I 0.069 01/10/18 01/10/18 01/10/18 07:46 13:38 13:38 Creatine Kinase 134 CK-MB (CK-2) 1.79 2.06 Troponin I 0.070 0.068 Impressions: Chest X-Ray 01/09/18 18:40 IMPRESSION: NO ACUTE RADIOGRAPHIC FINDING IN THE CHEST. Head CT 01/09/18 19:15 IMPRESSION: NORMAL BRAIN CT WITHOUT CONTRAST. EVIDENCE OF ACUTE STROKE: NO.
[2018-01-21 12:45] VITALS: BP 118/95
== END 2018-01-21 17:31 | DRG 640 ==
LOC: ER 18:26 → EH 21:48 → 4N 01-10 02:20
PROVIDERS: ADMIT Internal Medicine; ATTEND Internal Medicine
DX: E87.6 Hypokalemia (principal); G93.41 Metabolic encephalopathy; N17.9 Acute kidney failure, unspecified; E46 Unspecified protein-calorie malnutrition; Z68.1 Body mass index [BMI] 19.9 or less, adult; E86.0 Dehydration; I10 Essential (primary) hypertension; F01.50 Vascular dementia, unspecified severity, without behavioral disturbance, psychotic disturbance, mood disturbance, and anxiety; E03.9 Hypothyroidism, unspecified; K21.9 Gastro-esophageal reflux disease without esophagitis; M19.90 Unspecified osteoarthritis, unspecified site; E78.5 Hyperlipidemia, unspecified; Z90.49 Acquired absence of other specified parts of digestive tract; Z90.710 Acquired absence of both cervix and uterus; S00.03XA Contusion of scalp, initial encounter; S00.11XA Contusion of right eyelid and periocular area, initial encounter; W19.XXXA Unspecified fall, initial encounter; Y92.009 Unspecified place in unspecified non-institutional (private) residence as the place of occurrence of the external cause
CPT/HCPCS: 36415; 70450; 71045; 80048; 80053; 81001; 82272; 82306; 82550; 82553; 82803; 83605; 83735; 84100; 84443; 84484; 85025; 85610; 87040; 87045; 87086; 87205; 87493; 89055; 93005; 93010; 96361; 96374; 99285; G8978-GP; G8979-GP; G8987-GO; G8988-GO; G8989-GO; J0696; J1644; J2405; J3480; J3490; J7030